=== PATIENT | male | born 1965 | race Caucasian/White ===

== ENCOUNTER 2022-06-24 20:55 | Inpatient (IN) | payer MEDICARE ==
[2022-06-24] MEDS ORDERED: Dextrose 5% in Water 1,000 ML IV PRN (23:45)
[2022-06-24] MEDS ORDERED: Dextrose 50% Abboject 50 ML SYRINGE IVP PRN (23:45)
[2022-06-24] MEDS ORDERED: Bumetanide 1 MG TAB PO SCH (23:45)
[2022-06-24] MEDS ORDERED: Nitroglycerin 0.4 MG TAB 1 EACH SL PRN (23:54)
[2022-06-25] MEDS: ALPRAZolam 0.5 MG TAB PO PRN ×4 (00:10→21:40)
[2022-06-25] MEDS: Acetaminophen/Codeine 30-300mg Tablet PO PRN ×4 (00:11→20:48)
[2022-06-25] MEDS: HumaLOG 300 UNITS/3 ML VIAL SC PRN ×4 (00:22→18:47)
[2022-06-25] MEDS: Tamsulosin HCl 0.4 MG CAP PO SCH (08:11)
[2022-06-25] MEDS: Clopidogrel Bisulfate 75 MG TAB PO SCH (08:11)
[2022-06-25] MEDS: Apixaban 5 MG TAB PO SCH ×2 (08:11→20:47)
[2022-06-25] MEDS: Spironolactone 25 MG TAB PO SCH (08:12)
[2022-06-25] MEDS: Bumetanide 1 MG TAB PO SCH ×3 (08:12→20:47)
[2022-06-25] MEDS: Pregabalin 50 MG CAP PO SCH ×2 (08:12→20:47)
[2022-06-25] MEDS: Digoxin 0.25 MG TAB PO SCH (08:13)
[2022-06-25] MEDS: Atorvastatin Calcium 40 MG TAB PO SCH (08:13)
[2022-06-25] MEDS: Famotidine 20 MG TAB PO SCH (20:47)
[2022-06-25] MEDS: Nicotine 14 MG PATCH TOP SCH (20:47)
[2022-06-25] MEDS: Lantus 1000 UNITS/10 ML VIAL SC SCH (20:49)
[2022-06-26] MEDS: Acetaminophen/Codeine 30-300mg Tablet PO PRN ×3 (02:31→17:08)
[2022-06-26] MEDS: ALPRAZolam 0.5 MG TAB PO PRN ×3 (05:23→19:08)
[2022-06-26] MEDS: Pregabalin 50 MG CAP PO SCH ×2 (08:40→21:03)
[2022-06-26] MEDS: Tamsulosin HCl 0.4 MG CAP PO SCH (08:41)
[2022-06-26] MEDS: Digoxin 0.25 MG TAB PO SCH (08:41)
[2022-06-26] MEDS: Clopidogrel Bisulfate 75 MG TAB PO SCH (08:41)
[2022-06-26] MEDS: Famotidine 20 MG TAB PO SCH ×2 (08:41→21:02)
[2022-06-26] MEDS: Atorvastatin Calcium 40 MG TAB PO SCH (08:41)
[2022-06-26] MEDS: Apixaban 5 MG TAB PO SCH ×2 (08:41→21:01)
[2022-06-26] MEDS: Bumetanide 1 MG TAB PO SCH ×2 (08:42→21:01)
[2022-06-26] MEDS: HumaLOG 300 UNITS/3 ML VIAL SC PRN ×4 (08:45→21:10)
[2022-06-26] MEDS: Spironolactone 25 MG TAB PO SCH (08:45)
[2022-06-26] MEDS: Nicotine 14 MG PATCH TOP SCH (21:03)
[2022-06-26] MEDS: Lantus 1000 UNITS/10 ML VIAL SC SCH (21:10)
[2022-06-27] MEDS: Acetaminophen/Codeine 30-300mg Tablet PO PRN ×4 (01:38→21:29)
[2022-06-27] MEDS: ALPRAZolam 0.5 MG TAB PO PRN ×3 (05:08→19:41)
[2022-06-27] MEDS: HumaLOG 300 UNITS/3 ML VIAL SC PRN ×4 (08:35→21:31)
[2022-06-27] MEDS: Tamsulosin HCl 0.4 MG CAP PO SCH (08:35)
[2022-06-27] MEDS: Pregabalin 50 MG CAP PO SCH ×2 (08:36→21:28)
[2022-06-27] MEDS: Bumetanide 1 MG TAB PO SCH ×2 (08:36→21:28)
[2022-06-27] MEDS: Spironolactone 25 MG TAB PO SCH (08:36)
[2022-06-27] MEDS: Clopidogrel Bisulfate 75 MG TAB PO SCH (08:36)
[2022-06-27] MEDS: Famotidine 20 MG TAB PO SCH ×2 (08:36→21:29)
[2022-06-27] MEDS: Apixaban 5 MG TAB PO SCH ×2 (08:36→21:28)
[2022-06-27] MEDS: Atorvastatin Calcium 40 MG TAB PO SCH (08:36)
[2022-06-27] MEDS: Digoxin 0.25 MG TAB PO SCH (08:40)
[2022-06-27] MEDS: Ipratropium/Albuterol 3 ML NEB NEB PRN (14:17)
[2022-06-27] MEDS: Lantus 1000 UNITS/10 ML VIAL SC SCH (21:30)
[2022-06-27] MEDS: Nicotine 14 MG PATCH TOP SCH (21:30)
[2022-06-28] MEDS: Acetaminophen/Codeine 30-300mg Tablet PO PRN ×4 (04:08→23:16)
[2022-06-28 05:31] LABS: ALT (SGPT) 21 U/L (8-55); AST (SGOT) 12 U/L (5-34); Albumin 3.4 g/dL (3.5-5.0); Alkaline Phosphatase 134 U/L (40-110); Anion Gap 12 mmol/L (10-20); BUN (Urea Nitrogen) 19 mg/dL (8.4-25.7); Bilirubin, Total 1.2 mg/dL (0.2-1.2); Calc. Creatinine Clearance 123 mL/min (70-130); Calcium 9.1 mg/dL (7.8-10.44); Carbon Dioxide 31 mmol/L (22-29); Chloride 95 mmol/L (98-107); Estimated GFR 99; Globulin 3.3 g/dL (2.4-3.5); Glucose 213 mg/dL (70-105); Potassium 3.8 mmol/L (3.5-5.1); Protein, Total 6.7 g/dL (6.0-8.3); Sodium 134 mmol/L (136-145)
[2022-06-28 06:08] LABS: Band 3 % (5-11); Eosinophils 2 % (0-10); Hemoglobin 12.6 g/dL (14.0-18.0); Lymphocytes 29 % (21-51); MDiff Complete? YES; Mean Corpuscular Hemoglobin 31.1 pg (27.0-31.0); Mean Corpuscular Volume 86.3 fl (78.0-98.0); Mean Platelet Volume 6.1 fL (7.4-10.4); Monocytes 9 % (0-10); Neutrophil 56 % (42-75); Platelet Count 456 10x3/uL (130-400); RBC Distribution Width 10.6 % (11.5-14.5); RBC Morphology Normal; Red Blood Cell (RBC) Count 4.05 mill/uL (4.70-6.10); White Blood Cell (WBC) Count 9.9 10x3/uL (4.8-10.8)
[2022-06-28] MEDS: Pregabalin 50 MG CAP PO SCH ×2 (08:32→20:45)
[2022-06-28] MEDS: ALPRAZolam 0.5 MG TAB PO PRN ×3 (08:32→20:44)
[2022-06-28] MEDS: Tamsulosin HCl 0.4 MG CAP PO SCH (08:32)
[2022-06-28] MEDS: Clopidogrel Bisulfate 75 MG TAB PO SCH (08:33)
[2022-06-28] MEDS: Apixaban 5 MG TAB PO SCH ×2 (08:33→20:45)
[2022-06-28] MEDS: HumaLOG 300 UNITS/3 ML VIAL SC PRN ×4 (08:33→20:47)
[2022-06-28] MEDS: Bumetanide 1 MG TAB PO SCH ×2 (08:33→20:45)
[2022-06-28] MEDS: Atorvastatin Calcium 40 MG TAB PO SCH (08:33)
[2022-06-28] MEDS: Spironolactone 25 MG TAB PO SCH (08:33)
[2022-06-28] MEDS: Famotidine 20 MG TAB PO SCH ×2 (08:33→20:45)
[2022-06-28] MEDS: Digoxin 0.25 MG TAB PO SCH (08:34)
[2022-06-28] MEDS: Ipratropium/Albuterol 3 ML NEB NEB PRN (13:11)
[2022-06-28] MEDS: Nicotine 14 MG PATCH TOP SCH (20:45)
[2022-06-28] MEDS: Lantus 1000 UNITS/10 ML VIAL SC SCH (20:47)
[2022-06-29] MEDS: ALPRAZolam 0.5 MG TAB PO PRN ×3 (04:47→17:21)
[2022-06-29] MEDS: Ipratropium/Albuterol 3 ML NEB NEB PRN (08:33)
[2022-06-29] MEDS: Acetaminophen/Codeine 30-300mg Tablet PO PRN ×3 (08:34→20:32)
[2022-06-29] MEDS: Spironolactone 25 MG TAB PO SCH (08:35)
[2022-06-29] MEDS: Famotidine 20 MG TAB PO SCH ×2 (08:35→20:33)
[2022-06-29] MEDS: Pregabalin 50 MG CAP PO SCH ×2 (08:35→20:32)
[2022-06-29] MEDS: Atorvastatin Calcium 40 MG TAB PO SCH (08:35)
[2022-06-29] MEDS: Bumetanide 1 MG TAB PO SCH ×2 (08:35→20:33)
[2022-06-29] MEDS: Tamsulosin HCl 0.4 MG CAP PO SCH (08:35)
[2022-06-29] MEDS: Apixaban 5 MG TAB PO SCH ×2 (08:36→20:33)
[2022-06-29] MEDS: HumaLOG 300 UNITS/3 ML VIAL SC PRN ×4 (08:36→21:07)
[2022-06-29] MEDS: Digoxin 0.25 MG TAB PO SCH (08:37)
[2022-06-29] MEDS: Polyethylene Glycol 3350 17 GM Packet PO PRN (08:39)
[2022-06-29] MEDS: Nicotine 14 MG PATCH TOP SCH (20:33)
[2022-06-29] MEDS: Lantus 1000 UNITS/10 ML VIAL SC SCH (20:33)
[2022-06-30] MEDS: Acetaminophen/Codeine 30-300mg Tablet PO PRN ×4 (02:43→22:35)
[2022-06-30] MEDS: Tamsulosin HCl 0.4 MG CAP PO SCH (08:23)
[2022-06-30] MEDS: Spironolactone 25 MG TAB PO SCH (08:23)
[2022-06-30] MEDS: ALPRAZolam 0.5 MG TAB PO PRN ×3 (08:23→20:35)
[2022-06-30] MEDS: Pregabalin 50 MG CAP PO SCH ×2 (08:23→20:30)
[2022-06-30] MEDS: Ipratropium/Albuterol 3 ML NEB NEB PRN (08:23)
[2022-06-30] MEDS: Polyethylene Glycol 3350 17 GM Packet PO PRN (08:23)
[2022-06-30] MEDS: Bumetanide 1 MG TAB PO SCH ×2 (08:23→20:31)
[2022-06-30] MEDS: Apixaban 5 MG TAB PO SCH ×2 (08:23→20:30)
[2022-06-30] MEDS: Atorvastatin Calcium 40 MG TAB PO SCH (08:23)
[2022-06-30] MEDS: HumaLOG 300 UNITS/3 ML VIAL SC PRN ×4 (08:24→20:46)
[2022-06-30] MEDS: Famotidine 20 MG TAB PO SCH ×2 (08:24→20:30)
[2022-06-30] MEDS: Digoxin 0.25 MG TAB PO SCH (08:26)
[2022-06-30] MEDS: Nicotine 14 MG PATCH TOP SCH (20:32)
[2022-06-30] MEDS: Lantus 1000 UNITS/10 ML VIAL SC SCH (20:35)
[2022-07-01] MEDS: Atorvastatin Calcium 40 MG TAB PO SCH (08:09)
[2022-07-01] MEDS: ALPRAZolam 0.5 MG TAB PO PRN ×3 (08:09→21:54)
[2022-07-01] MEDS: Polyethylene Glycol 3350 17 GM Packet PO PRN (08:09)
[2022-07-01] MEDS: Pregabalin 50 MG CAP PO SCH ×2 (08:09→20:16)
[2022-07-01] MEDS: Spironolactone 25 MG TAB PO SCH (08:09)
[2022-07-01] MEDS: Apixaban 5 MG TAB PO SCH ×2 (08:10→20:17)
[2022-07-01] MEDS: Famotidine 20 MG TAB PO SCH ×2 (08:10→20:17)
[2022-07-01] MEDS: Tamsulosin HCl 0.4 MG CAP PO SCH (08:10)
[2022-07-01] MEDS: Bumetanide 1 MG TAB PO SCH ×2 (08:10→20:16)
[2022-07-01] MEDS: Digoxin 0.25 MG TAB PO SCH (08:10)
[2022-07-01] MEDS: HumaLOG 300 UNITS/3 ML VIAL SC PRN ×4 (08:15→20:21)
[2022-07-01] MEDS: Ipratropium/Albuterol 3 ML NEB NEB PRN (09:33)
[2022-07-01] MEDS ORDERED: Acetaminophen/Codeine 30-300mg Tablet ONE (09:38)
[2022-07-01] MEDS: Acetaminophen/Codeine 30-300mg Tablet PO PRN ×3 (09:40→23:54)
[2022-07-01] MEDS: Lantus 1000 UNITS/10 ML VIAL SC SCH (20:18)
[2022-07-01] MEDS: Nicotine 14 MG PATCH TOP SCH (21:35)
[2022-07-02] MEDS: ALPRAZolam 0.5 MG TAB PO PRN ×3 (05:20→20:41)
[2022-07-02] MEDS: Atorvastatin Calcium 40 MG TAB PO SCH (09:22)
[2022-07-02] MEDS: Spironolactone 25 MG TAB PO SCH (09:23)
[2022-07-02] MEDS: Pregabalin 50 MG CAP PO SCH ×2 (09:24→20:33)
[2022-07-02] MEDS: Tamsulosin HCl 0.4 MG CAP PO SCH (09:24)
[2022-07-02] MEDS: Famotidine 20 MG TAB PO SCH ×2 (09:24→20:33)
[2022-07-02] MEDS: Acetaminophen/Codeine 30-300mg Tablet PO PRN ×3 (09:25→22:45)
[2022-07-02] MEDS: Apixaban 5 MG TAB PO SCH ×2 (09:26→20:33)
[2022-07-02] MEDS: Digoxin 0.25 MG TAB PO SCH (09:26)
[2022-07-02] MEDS: Bumetanide 1 MG TAB PO SCH ×2 (09:26→20:33)
[2022-07-02] MEDS: HumaLOG 300 UNITS/3 ML VIAL SC PRN ×2 (11:47→17:14)
[2022-07-02] MEDS: Nicotine 14 MG PATCH TOP SCH (20:33)
[2022-07-02] MEDS: Lantus 1000 UNITS/10 ML VIAL SC SCH (20:37)
[2022-07-03] MEDS: Acetaminophen/Codeine 30-300mg Tablet PO PRN ×3 (07:17→21:05)
[2022-07-03] MEDS: Pregabalin 50 MG CAP PO SCH ×2 (08:34→21:04)
[2022-07-03] MEDS: Apixaban 5 MG TAB PO SCH ×2 (08:35→21:04)
[2022-07-03] MEDS: Atorvastatin Calcium 40 MG TAB PO SCH (08:35)
[2022-07-03] MEDS: Bumetanide 1 MG TAB PO SCH ×2 (08:35→21:04)
[2022-07-03] MEDS: Famotidine 20 MG TAB PO SCH ×2 (08:35→21:04)
[2022-07-03] MEDS: Tamsulosin HCl 0.4 MG CAP PO SCH (08:35)
[2022-07-03] MEDS: Digoxin 0.25 MG TAB PO SCH (08:35)
[2022-07-03] MEDS: Spironolactone 25 MG TAB PO SCH (08:35)
[2022-07-03] MEDS: HumaLOG 300 UNITS/3 ML VIAL SC PRN ×4 (08:36→21:07)
[2022-07-03] MEDS: ALPRAZolam 0.5 MG TAB PO PRN ×3 (08:42→23:21)
[2022-07-03] MEDS: Ipratropium/Albuterol 3 ML NEB NEB PRN (14:17)
[2022-07-03] MEDS: Lantus 1000 UNITS/10 ML VIAL SC SCH (21:05)
[2022-07-03] MEDS: Nicotine 14 MG PATCH TOP SCH (21:05)
[2022-07-04 05:11] LABS: Hemoglobin 12.6 g/dL (14.0-18.0); Platelet Count 466 10x3/uL (130-400)
[2022-07-04] MEDS: Acetaminophen/Codeine 30-300mg Tablet PO PRN (07:04)
[2022-07-04 07:10] VITALS: BP 129/72; TEMP 98.5
[2022-07-04] MEDS: Pregabalin 50 MG CAP PO SCH (08:52)
[2022-07-04] MEDS: ALPRAZolam 0.5 MG TAB PO PRN (08:52)
[2022-07-04] MEDS: Digoxin 0.25 MG TAB PO SCH (08:53)
[2022-07-04] MEDS: Tamsulosin HCl 0.4 MG CAP PO SCH (08:53)
[2022-07-04] MEDS: Apixaban 5 MG TAB PO SCH (08:53)
[2022-07-04] MEDS: Famotidine 20 MG TAB PO SCH (08:53)
[2022-07-04] MEDS: Bumetanide 1 MG TAB PO SCH (08:53)
[2022-07-04] MEDS: Spironolactone 25 MG TAB PO SCH (08:53)
[2022-07-04] MEDS: Atorvastatin Calcium 40 MG TAB PO SCH (08:53)
[2022-07-04] MEDS: HumaLOG 300 UNITS/3 ML VIAL SC PRN ×2 (09:04→12:21)
== END 2022-07-04 13:00 | disposition home health service (06) | DRG 561 ==
LOC: MADMS 20:55
PROVIDERS: ADMIT Family Medicine; ATTEND Family Medicine
DX: S72.141D Displaced intertrochanteric fracture of right femur, subsequent encounter for closed fracture with routine healing (principal); W18.30XD Fall on same level, unspecified, subsequent encounter; I10 Essential (primary) hypertension; E11.9 Type 2 diabetes mellitus without complications; G89.29 Other chronic pain; I25.10 Atherosclerotic heart disease of native coronary artery without angina pectoris; I48.91 Unspecified atrial fibrillation; R53.1 Weakness; J44.9 Chronic obstructive pulmonary disease, unspecified; M54.9 Dorsalgia, unspecified; E78.5 Hyperlipidemia, unspecified; N40.0 Benign prostatic hyperplasia without lower urinary tract symptoms; Z20.822 Contact with and (suspected) exposure to COVID-19; R53.81 Other malaise; K59.00 Constipation, unspecified; Z79.01 Long term (current) use of anticoagulants; Z86.718 Personal history of other venous thrombosis and embolism; Z86.73 Personal history of transient ischemic attack (TIA), and cerebral infarction without residual deficits; Z95.1 Presence of aortocoronary bypass graft; Z79.82 Long term (current) use of aspirin; Z79.899 Other long term (current) drug therapy; Z79.4 Long term (current) use of insulin
CPT/HCPCS: 36415; 36416; 80053; 82565; 85014; 85018; 85025; 85049; 87811; 94640; J1815; J7620